=== PATIENT | female | born 1945 | race Caucasian/White ===

== ENCOUNTER 2017-08-02 09:51 | Day surgery (SDC) | payer MEDICARE, BC ==
[~2017-08-02] VITALS: Ht 162.6 cm; Wt 47.0 kg
[~2017-08-02 09:51] MED LIST: BISA5EC; ESCI20; LORA.5; METO10; MIRALAX17 GM; PREG150; Pindolol5 MG
== END 2017-08-02 12:26 | disposition home or self-care (01) ==
LOC: ORSCSDS 09:51
PROVIDERS: Internal Medicine Gastroenterology
PROC: 0DJD8ZZ Inspection of Lower Intestinal Tract, Via Natural or Artificial Opening Endoscopic (ICD-10-PCS; principal; 2017-08-02 11:15)
DX: Z12.11 Encounter for screening for malignant neoplasm of colon (principal); Z79.899 Other long term (current) drug therapy
CPT/HCPCS: 86803; J7120

== ENCOUNTER → 2022-05-18 | Outpatient (CLI) | payer MEDICARE, BC | END | disposition home or self-care (01) | LOC: PLD 07:24 → LAB SHORT 07:24 | DX: K13.0 Diseases of lips (principal) | CPT/HCPCS: 88305; 88313 ==

== ENCOUNTER → 2022-12-25 | Outpatient (CLI) | payer MEDICARE, BC | END | disposition home or self-care (01) | LOC: LAB 13:29 → LAB SHORT 13:29 | DX: N39.0 Urinary tract infection, site not specified (principal) | CPT/HCPCS: 87086 ==

== ENCOUNTER → 2023-01-07 | Outpatient (CLI) | payer MEDICARE, BC | END | disposition home or self-care (01) | LOC: LAB SHORT 17:13 → LAB 17:13 | DX: N39.0 Urinary tract infection, site not specified (principal) | CPT/HCPCS: 87086 ==

== ENCOUNTER → 2023-02-12 | Outpatient (CLI) | payer MEDICARE, BC | LOC: LAB 12:36 → LAB SHORT 12:36 | DX: N39.0 Urinary tract infection, site not specified (principal) | CPT/HCPCS: 87086 ==

== ENCOUNTER 2023-04-01 11:48 | Inpatient (IN) | payer OTHER, MEDICARE, BC ==
[~2023-04-01] VITALS: Ht 162.6 cm; Wt 38.6 kg
[~2023-04-01 11:48] MED LIST changes: -ESCI20; +ESCI20 PO; -MIRALAX17 GM; +MIRALAX17 GM PO; -PREG150; +PREG150 PO
[2023-04-01 12:39] LABS: BASOPHILS ABSOLUTE AUTO 0.02 K/mm3 (0.00-0.23); BASOPHILS PERCENT AUTO 0 % (0-2); EOSINOPHILS PERCENT AUTO 0 % (0-6); IMMATURE GRAN ABSOLUTE AUTO 0.03 K/mm3 (0.00-0.10); IMMATURE GRAN PERCENT AUTO 0 % (0-1); LYMPHOCYTES ABSOLUTE AUTO 0.34 K/mm3 (0.84-5.20); LYMPHOCYTES PERCENT AUTO 3 % (21-46); MONOCYTES ABSOLUTE AUTO 0.34 K/mm3 (0.16-1.47); MONOCYTES PERCENT AUTO 3 % (4-13); Mean Corpuscular HGB 33.5 pg (26.0-34.0); Mean Corpuscular HGB Conc 32.5 g/dL (31.5-36.5); Mean Corpuscular Volume 103 fL (80-100); Mean Platelet Volume 11.5 fL (9.1-12.4); NEUTROPHILS PERCENT AUTO 94 % (41-73); Platelet Count 139 K/mm3 (150-400); RDW Coefficient Variation 12.5 % (11.7-14.2); RDW Standard Deviation 46.7 fL (35.1-46.3); Red Blood Cell Count 3.88 M/mm3 (3.80-5.20); White Blood Cell Count 11.73 K/mm3 (4.00-11.30)
[2023-04-01 12:59] LABS: Albumin, Blood 3.5 g/dL (3.4-5.0); Bilirubin, Total 0.6 mg/dL (0.1-1.0); Bun/Creatinine Ratio 46.4 (12.0-20.0); Calcium, Blood 9.1 mg/dL (8.5-10.1); Creatinine, Blood 0.65 mg/dL (0.40-1.00); Globulin, Blood 3.6 g/dL (2.2-4.0); Potassium, Blood 4.4 mmol/L (3.5-5.5); Total Protein, Blood 7.1 g/dL (6.4-8.2)
[2023-04-01 13:01] LABS: BASOPHILS PERCENT MAN 0 % (0-2); EOSINOPHILS PERCENT MAN 0 % (0-6); LYMPHOCYTES ABSOLUTE MAN 0.35 K/mm3 (0.84-5.20); LYMPHOCYTES PERCENT MAN 3 % (21-46); MONOCYTES ABSOLUTE MAN 0.23 K/mm3 (0.16-1.47); MONOCYTES PERCENT MAN 2 % (4-13); NEUTROPHILS ABSOLUTE MAN 11.14 K/mm3 (1.96-9.15); SEG NEUTROPHILS PERCENT MAN 95 % (41-73); TOTAL CELLS COUNTED 100
[2023-04-01] MEDS ORDERED: HYDROCODONE-AC1 EA19 PO (14:42)
[2023-04-01] MEDS ORDERED: TRAZ150T57 PO (14:43)
--- NOTE | 2023-04-01 17:01 | NUR ---
ORTHO CONSULT COMPLETED; PLAN FOR OR TOMORROW
[2023-04-01 17:04] VITALS: BP 139/80
--- NOTE | 2023-04-01 18:01 | NUR ---
PT WANTS TO GET OOB TO USE BSC; AGREED TO [facility]NER. [id number] PLACED.
[2023-04-01 20:07] VITALS: BP 131/67
[2023-04-02] VITALS (15 sets, daily range): BP systolic 100–151; BP diastolic 59–89
--- NOTE | 2023-04-02 02:13 | NUR ---
PT CONFUSED,SET OFF BED ALARM ATTEMPTING TO GET OOB TO BATHROOM.IRRITABLE.PT UP TO BSC.ADAMENT.VOIDING.TRANSFERRED TO RM 213 TO BE CLOSER TO [facility] DUE TO CONFUSION.BED ALARM ON.
[2023-04-02 04:27] LABS: Hematocrit 33.3 % (33.0-51.0); Mean Corpuscular HGB 33.7 pg (26.0-34.0); Mean Corpuscular Volume 102 fL (80-100); Mean Platelet Volume 12.2 fL (9.1-12.4); Platelet Count 113 K/mm3 (150-400); RDW Coefficient Variation 12.4 % (11.7-14.2); RDW Standard Deviation 46.6 fL (35.1-46.3); Red Blood Cell Count 3.26 M/mm3 (3.80-5.20); White Blood Cell Count 10.15 K/mm3 (4.00-11.30)
[2023-04-02 04:46] LABS: Bun/Creatinine Ratio 46.1 (12.0-20.0); Calcium, Blood 8.1 mg/dL (8.5-10.1); Creatinine, Blood 0.52 mg/dL (0.40-1.00); Potassium, Blood 4.6 mmol/L (3.5-5.5)
--- NOTE | 2023-04-02 07:57 | NUR ---
SUMMARY PT CONFUSED T/O SHIFT. SPOKE TO DAY RN TODAY AND HE REPORTED PT IS "FORGETFUL" AT HOME.PT CONT ATTEMPTING TO GET OOB SETTING OF BED ALARM FREQUENTLY. PT CONFUSED AND THINKS SHE IS HEARING HER .
--- NOTE | 2023-04-02 08:19 | NUR ---
Spiritual Care Pt. request Pt. is awake in bed and welcomes my visit. Pt. displays evidence of confusion, but is pleasant. Pt. verbalized she is waiting for her spouse to arrive. Pt. displayed evidence of frustration to formulate her words, so this diesel mechanic construction kept the visit brief. Pt. welcomed Prayer. Prayed with Pt. Pt. verbalized gratitude for the spiritual care visit and welcomed this diesel mechanic construction to return.
--- NOTE | 2023-04-02 11:35 | NUR ---
PT TO OR
--- NOTE | 2023-04-02 15:38 | NUR ---
PULLING LINES OFF CONFUSED 3 NURSES WORKING WITH HER TRYING TO REASURE AND KEEP LINES ON . SHE IS NOW STARTING TO BE VERBAL ASKING FOR HELP . PULLS ALL LINES OFF WHEN WE GET THEM ON . SECURED IV AND TRYING TO HOLD HER HANDS GENTLY AND REASSURE . SAYS SHE HAS TO GO TO BATHROOM BUT WONT USE BED PCAN . NOW IS CALMER WILL NOT LET US
--- NOTE | 2023-04-02 16:02 | NUR ---
PT AT BEDSIDE AND pt is much calmer . THINKS GETTING HER TO HER ROOM WILL BE A BENEFIT TO HELP HER RELAX. VS THAT WE HAVE BEEN ABLE TO GET ARE STABLE SHE IS NOW TALKING TO US IN ORIENTED MANNER . STABLE PT TRANSFERRED TO ROOM 213 . SHE IS PLEASANT AT THIS TIME
--- NOTE | 2023-04-02 16:37 | NUR ---
PT ARRIVED TO ROOM 213 FROM PACU AWAKE AND ALERT. PT DENIES PAIN. PT'S HANDS AND FEET COLD, INITIAL 02 READINGS WERE IN FIFTIES. PLACED WARM BLANKETS ON PT AND 4L NC, PT'S SATS INCREASED TO LOW 90S, SATS INCREASED TO HIGH 90S, TIRATED 02 DOWN TO 1L, 02 SATS REMAINED IN LOW-MID 90S. AQUACEL DRESSING TO L HIP CDI. AWAITING POST OP XRAY. SPOUSE AT BEDSIDE. WATER PROVIDED FOR PATIENT.
--- NOTE | 2023-04-02 17:49 | NUR ---
SUMMARY PT POD 0 FOR L ELIZABETH HIP. AQUACEL DRESSING TO L HIP CDI. PT EATING DINNER AT THIS TIME. DENIES PAIN. SPOUSE AT BEDSIDE. PT CALM AT THIS TIME. BED ALARM ON FOR SAFETY.
[2023-04-03 00:10] VITALS: BP 109/60
[2023-04-03 04:06] VITALS: BP 126/74
[2023-04-03 05:06] LABS: Hemoglobin 10.4 g/dL (11.5-16.0); Mean Corpuscular HGB 33.8 pg (26.0-34.0); Mean Corpuscular HGB Conc 32.5 g/dL (31.5-36.5); Mean Corpuscular Volume 104 fL (80-100); Mean Platelet Volume 11.7 fL (9.1-12.4); Platelet Count 114 K/mm3 (150-400); RDW Coefficient Variation 12.5 % (11.7-14.2); RDW Standard Deviation 47.7 fL (35.1-46.3); Red Blood Cell Count 3.08 M/mm3 (3.80-5.20); White Blood Cell Count 12.61 K/mm3 (4.00-11.30)
[2023-04-03 05:41] LABS: Albumin, Blood 2.6 g/dL (3.4-5.0); Anion Gap 6 mmol/L (6-16); Blood Urea Nitrogen 32 mg/dL (8-24); Bun/Creatinine Ratio 42.4 (12.0-20.0); CO2, Blood 27 mmol/L (21-32); Calcium, Blood 8.2 mg/dL (8.5-10.1); Chloride, Blood 109 mmol/L (98-108); Creatinine, Blood 0.76 mg/dL (0.40-1.00); Glomerular Filtration Rate 81 (60-); Glucose, Blood 131 mg/dL (70-99); Phosphorus, Blood 3.2 mg/dL (2.5-4.9); Potassium, Blood 4.2 mmol/L (3.5-5.5); Sodium, Blood 142 mmol/L (136-145)
--- NOTE | 2023-04-03 05:58 | NUR ---
SHIFT SUMMARY NOC. PT IS NOW POD #1 FOR LEFT ELIZABETH HIP. PT ABLE TO STAND AND PIVOT TO BEDSIDE COMMODE TO VOID. PT TOLERATING PO FLUIDS. PT DENIES PAIN WHEN ASKED BY THIS RN. PT'S AQUACEL DRESSING ON LEFT LATERAL HIP IS CLEAN DRY AND INTACT WITHOUT ANY DRAINAGE. PT IS PLEASANT AND SLIGHTLY CONFUSED AND NEEDS DIRECTIONS REPEATED OCCASIONALLY.
[2023-04-03 07:22] VITALS: BP 107/50
--- NOTE | 2023-04-03 08:00 | NUR ---
ROOM AIR TRIAL THIS AM; 84% ON RA. 2L REPLACED.
--- NOTE | 2023-04-03 12:22 | NUR ---
ROOM AIR TRIAL: 88% ON RA. 2L REPLACED.
[2023-04-03 15:05] VITALS: BP 97/47
--- NOTE | 2023-04-03 18:07 | NUR ---
SHIFT SUMMARY PT HAS DONE WELL TODAY. WORKED w/ THERAPY. THEN UP TO CHAIR MIDDAY. GRADUATED FROM USING BSC TO AMBULATING TO BATHROOM w/ FWW & GB. HOPEFUL FOR DC HOME TOMORROW.
[2023-04-03 19:25] VITALS: BP 101/57
[2023-04-04 03:24] VITALS: BP 123/63
--- NOTE | 2023-04-04 04:39 | NUR ---
SHIFT SUMMARY POD 2 L ELIZABETH HIP. VS WNL FOR PT, O2 SAT >93% ON RA WHILE ASLEEP. A&O X3, CONFUSED TO TIME ORIENTATION. AQUACEL DRESSING C/D/I. PT CAN AMBULATE TO RESTROOM WITH FWW. PT TOLERATING DIET. ANTICIPATED D/C LATER TODAY, GOING HOME WITH . BED IN LOWEST POSITION, BED ALARM ON FOR SAFETY, CALL LIGHT WITHIN REACH, WILL REPORT TO DAY NURSE.
[2023-04-04 07:10] VITALS: BP 103/72
[2023-04-04] MEDS ORDERED: ELIQUIS2.5 MG PO (14:39)
[2023-04-04] MEDS ORDERED: ACET325 PO (14:40)
[2023-04-04] MEDS ORDERED: Vitamin D1000 UNI1 PO (14:40)
--- NOTE | 2023-04-04 15:10 | NUR ---
DISCHARGE DISCUSSED DC INFO w/ PT & SPOUSE. FEEL VERY COMFORTABLE w/ DC HOME. KNOWS IMPORTANCE OF F/U w/ DR ALBRIGHT. PAIN WELL MANAGED w/ TYLENOL. WORKED w/ THERAPY. STEADY GAIT. ESCORTED OUT VIA WC. CRYOTHERAPY SENT w/ PT.
== END 2023-04-04 15:10 | disposition home or self-care (01) | DRG 522 ==
LOC: ER 11:48 → SURS 13:01
PROVIDERS: Orthopaedic Surgery; Physician Assistant; ADMIT Internal Medicine
PROC: 0SRB0J9 Replacement of Left Hip Joint with Synthetic Substitute, Cemented, Open Approach (ICD-10-PCS; principal; 2023-04-02 12:30)
DX: S72.002A Fracture of unspecified part of neck of left femur, initial encounter for closed fracture (principal); Z68.1 Body mass index [BMI] 19.9 or less, adult; N81.6 Rectocele; F41.8 Other specified anxiety disorders; M85.80 Other specified disorders of bone density and structure, unspecified site; R73.9 Hyperglycemia, unspecified; G31.84 Mild cognitive impairment of uncertain or unknown etiology; W01.0XXA Fall on same level from slipping, tripping and stumbling without subsequent striking against object, initial encounter; Z88.1 Allergy status to other antibiotic agents; Z79.899 Other long term (current) drug therapy; Z98.890 Other specified postprocedural states; Y92.009 Unspecified place in unspecified non-institutional (private) residence as the place of occurrence of the external cause
CPT/HCPCS: 36415; 73502; 80048; 80053; 80069; 82947; 83036; 85025; 85027; 93005; 93010; 94760; 97110; 97112; 97116; 97161; 99284-25; A9270; C1713; C1776; J0171; J0690; J0735; J1100; J1885; J2060; J2371; J2405; J2704; J2795; J3010; J7120